=== PATIENT | female | born 1975 | race Hispanic/Latino ===

== ENCOUNTER 2020-03-03 10:17 | Inpatient (IN) | payer SELFPAY ==
[~2020-03-03] VITALS: Ht 157.5 cm; Wt 58.1 kg
[2020-03-03 12:08] LABS: APPEARANCE,URINE Clear (CLEAR); BILIRUBIN,URINE Negative (NEGATIVE); COLOR,URINE Yellow (YELLOW); GLUCOSE, URINE (UA) Negative (NEGATIVE); KETONES,URINE Negative (NEGATIVE); LEUKOCYTE ESTERASE ,URINE Negative (NEGATIVE); NITRATE,URINE Negative (NEGATIVE); OCCULT BLOOD,URINE Negative (NEGATIVE); PROTEIN,URINE Negative (NEGATIVE); UROBILINOGEN,URINE 0.2 mg/dL (0.2-1.0)
[2020-03-03 12:39] LABS: BASOPHILS % (AUTO) 0.5 % (0.0-5.0); EOSINOPHILS % (AUTO) 0.3 % (0.0-8.0); HEMATOCRIT 38.7 % (36-48); LYMPHOCYTES % (AUTO) 22.5 % (21.0-51.0); MEAN CORPUSCULAR HGB CONC 32.8 g/dL (32.0-36.0); MEAN CORPUSCULAR VOLUME 82.3 fL (79-99); NEUTROPHILS % (AUTO) 70.4 % (40.0-77.0); PLATELET COUNT (AUTO) 250 K/uL (130-400); WHITE BLOOD COUNT (AUTO) 6.7 K/uL (4.8-10.8)
[2020-03-03 12:54] LABS: CREATININE 0.6 mg/dL (0.5-1.5); POTASSIUM 4.1 mmol/L (3.5-5.1)
[2020-03-03] MEDS ORDERED: ONDANSETRON HCL 4 MG/2 ML VIAL ONE (12:55)
[2020-03-03] MEDS ORDERED: KETOROLAC TROMETHAMINE 15MG/ML ONE (12:55)
[2020-03-03] MEDS ORDERED: SODIUM CHLORIDE 0.9% 1000ML 1,000 ML IV ONE (12:55)
[2020-03-03] MEDS ORDERED: PROCHLORPERAZINE EDISYLATE 10 MG/2 ML VIAL ONE (12:56)
[2020-03-03 12:59] LABS: ALBUMIN 3.7 g/dL (3.5-5.0); BILIRUBIN,TOTAL 0.4 mg/dL (0.2-1.0); TOTAL PROTEIN, SERUM 7.9 g/dL (6.0-8.3)
[2020-03-03] MEDS ORDERED: TETANUS/DIPHTHERIA TOXOID [ADULT] 0.5 ML VIAL IM ONE (13:02)
[2020-03-03] MEDS ORDERED: LIDOCAINE HCL 1% 20 ML VIAL ONE (14:42)
[2020-03-03 16:04] LABS: GLUCOSE, CSF 45 mg/dL (40-70); TOTAL PROTEIN, CSF 125 mg/dL (15-45)
[2020-03-03 16:20] LABS: CSF TUBE NUMBER TUBE NO.1
[2020-03-03 16:21] LABS: APPEARANCE,CSF CLEAR (CLEAR); COLOR,CSF COLORLESS (COLORLESS); WHITE BLOOD CELL1,CSF 325 CMM (0-5)
[2020-03-03 16:22] LABS: APPEARANCE2,CSF CLEAR (CLEAR); COLOR2,CSF COLORLESS (COLORLESS); CSF 2ND TUBE NUMBER TUBE NO.4; RED BLOOD CELL1,CSF 56 CMM (0-0)
[2020-03-03 16:31] LABS: LYMPHOCYTES1,CSF 74 %; MONOCYTES1,CSF 5 %; NEUTROPHILS1,CSF 21 %
[2020-03-03 16:32] LABS: CSF LYMPHOCYTES2 75 %; MONOCYTES2,CSF 5 %; NEUTROPHILS2,CSF 20 %
[2020-03-03] MEDS ORDERED: ACETAMINOPHEN 325 MG TAB PO PRN ×2 (17:00)
[2020-03-03] MEDS: CEFTRIAXONE SODIUM 1 GM IV SCH (17:00)
[2020-03-03] MEDS ORDERED: LACTULOSE 20 GM/30 ML UDCUP PO PRN (17:00)
[2020-03-03] MEDS: METHYLPREDNISOLONE SOD SUCC 125MG/2ML VIAL IV SCH (17:00)
[2020-03-03] MEDS ORDERED: ONDANSETRON HCL 4 MG/2 ML VIAL IV PRN (17:00)
[2020-03-03] MEDS ORDERED: KETOROLAC TROMETHAMINE 15MG/ML IV PRN (17:15)
[2020-03-03] MEDS: SODIUM CHLORIDE 0.9% 1000ML 1,000 ML IV SCH (17:15)
[2020-03-03] MEDS ORDERED: CEFTRIAXONE SODIUM 2 GM VIAL ONE (17:34)
[2020-03-03] MEDS ORDERED: SODIUM CHLORIDE 0.9% 100 ML IV ONE (17:34)
[2020-03-03] MEDS ORDERED: DEXAMETHASONE SOD PHOSPHATE 10MG/ML 1ML VIAL ONE (17:34)
[2020-03-03] MEDS: FAMOTIDINE 20MG TAB 20 MG TAB PO SCH (21:00)
[2020-03-03] MEDS ORDERED: IOHEXOL-350 75 ML VIAL IV ONE (21:55)
[2020-03-04 00:07] VITALS: BP 106/58
[2020-03-04 04:11] VITALS: BP 109/60
[2020-03-04] MEDS: METHYLPREDNISOLONE SOD SUCC 125MG/2ML VIAL IV SCH ×2 (04:48→15:58)
[2020-03-04] MEDS: SODIUM CHLORIDE 0.9% 1000ML 1,000 ML IV SCH (05:32)
[2020-03-04] MEDS: ACYCLOVIR SODIUM 500 MG VIAL 500 MG in SODIUM CHLORIDE 0.9% 100 ML IV SCH ×3 (06:00→20:49)
[2020-03-04 06:12] LABS: BASOPHILS % (AUTO) 0.4 % (0.0-5.0); HEMATOCRIT 37.4 % (36-48); LYMPHOCYTES % (AUTO) 17.9 % (21.0-51.0); MEAN CORPUSCULAR HEMOGLOBIN 26.7 pg (27.0-33.0); MEAN CORPUSCULAR HGB CONC 32.6 g/dL (32.0-36.0); MEAN CORPUSCULAR VOLUME 81.8 fL (79-99); MONOCYTES % (AUTO) 4.5 % (3.0-13.0); PLATELET COUNT (AUTO) 170 K/uL (130-400); RED BLOOD CELL COUNT(AUTO) 4.57 MIL/uL (4.00-5.50); RED CELL DISTRIBUTION WIDTH 13.7 % (11.0-15.5); WHITE BLOOD COUNT (AUTO) 5.1 K/uL (4.8-10.8)
[2020-03-04 06:54] LABS: CREATININE 0.5 mg/dL (0.5-1.5); POTASSIUM 3.7 mmol/L (3.5-5.1)
[2020-03-04 08:00] VITALS: BP 107/59
--- NOTE | 2020-03-04 08:00 | NUR ---
ASSESSMENT PT IS AAOX3 DENIES CP DENIES SOB DENIES NV. PT DENIES HEADACHES AND DENIES SEEING VISUAL DISTURBANCES. SITTING UPRIGHT IN BED, CALL LIGHT WITHIN REACH.
[2020-03-04] MEDS ORDERED: ACYCLOVIR SODIUM 500 MG VIAL 500 MG in SODIUM CHLORIDE 0.9% 100 ML IV SCH (08:30)
[2020-03-04] MEDS: FAMOTIDINE 20MG TAB 20 MG TAB PO SCH ×2 (08:51→20:49)
[2020-03-04] MEDS: ENOXAPARIN SODIUM 40 MG/0.4 ML SYRINGE SQ SCH (08:52)
--- NOTE | 2020-03-04 11:30 | NUR ---
PLACED PT ON AIRBORNE ISOLATION R/O MENINGITIS PENDING LUMBAR TAP RESULTS, DONE IN ER DAY OF ADMISSION
[2020-03-04 12:00] VITALS: BP 106/59
--- NOTE | 2020-03-04 12:39 | NUR ---
UP TO SHOWER WITH NURSE AIDE ASSIST
--- NOTE | 2020-03-04 15:00 | NUR ---
DR Morgan ROUNDED ORDERS RECEIVED, CONSENT OBTAINED FOR MRA HEAD NECK WITH AND WITHOUT
[2020-03-04] MEDS: CEFTRIAXONE SODIUM 1 GM IV SCH (15:58)
--- NOTE | 2020-03-04 16:22 | NUR ---
INITIAL SW spoke to patient's father, Kyle Peres. Patient lives with her parents. She has no home services or DME. patient is able to complete ADL's independently but does not drive. PCP is Dr. Holden Edmond. Pharmacy is [facility] located in [place]. DCP is home. Patient has no insurance or benefits. SHe is a [place] citizen and has worked in the [place]. SW educated patient's father on [employer] $4 medication program and [facility] $5 medication program. Patient is being assisted by [employer] for financial matters. Addendum: 03/04/20 at 1625 by AMNA DON Amended: Links added.
[2020-03-04] MEDS ORDERED: GADODIAMIDE 10 MMOL/20 ML VIAL IV ONE (17:56)
[2020-03-04] MEDS ORDERED: COMPOUND IV MISC 1 EACH IVSOLN MISC PRN (19:45)
[2020-03-04 21:03] VITALS: BP 110/63
[2020-03-05 00:17] VITALS: BP 117/57
[2020-03-05] MEDS: ACYCLOVIR SODIUM 500 MG VIAL 500 MG in SODIUM CHLORIDE 0.9% 100 ML IV SCH ×3 (03:57→21:36)
[2020-03-05] MEDS: METHYLPREDNISOLONE SOD SUCC 125MG/2ML VIAL IV SCH (03:57)
[2020-03-05 04:20] VITALS: BP 107/57
[2020-03-05 05:56] LABS: BASOPHILS % (AUTO) 0.5 % (0.0-5.0); EOSINOPHILS % (AUTO) 0.6 % (0.0-8.0); HEMATOCRIT 36.2 % (36-48); LYMPHOCYTES % (AUTO) 19.8 % (21.0-51.0); MEAN CORPUSCULAR HGB CONC 32.9 g/dL (32.0-36.0); MEAN CORPUSCULAR VOLUME 82.3 fL (79-99); MONOCYTES % (AUTO) 7.2 % (3.0-13.0); NEUTROPHILS % (AUTO) 71.7 % (40.0-77.0); PLATELET COUNT (AUTO) 228 K/uL (130-400); RED CELL DISTRIBUTION WIDTH 13.7 % (11.0-15.5); WHITE BLOOD COUNT (AUTO) 6.2 K/uL (4.8-10.8)
[2020-03-05 06:27] LABS: CREATININE 0.6 mg/dL (0.5-1.5); POTASSIUM 3.8 mmol/L (3.5-5.1)
[2020-03-05 07:56] VITALS: BP 103/55
--- NOTE | 2020-03-05 08:15 | NUR ---
AM ASSESSMENT PT LAYING IN BED, WATCHING TV. DROPLET ISOLATION. A/O X 3. NO SOB. NO DISTRESS NOTED. KIA HEADACHE AND/OR LIGHT HEADEDNESS. DENIES DIZZINESS. DENIES CHEST PAIN OR DISCOMFORT. DENIES PALPITATIONS. DENIES N/V AND/OR DIARRHEA. UP AD HECTOR. INSTRUCTED TO CALL FOR ASSISTANCE. CALL [facility] W/IN REACH.
[2020-03-05] MEDS: ENOXAPARIN SODIUM 40 MG/0.4 ML SYRINGE SQ SCH (08:19)
[2020-03-05] MEDS: FAMOTIDINE 20MG TAB 20 MG TAB PO SCH ×2 (08:19→21:36)
[2020-03-05 11:00] VITALS: BP 106/61
[2020-03-05 16:00] VITALS: BP 109/62
[2020-03-05] MEDS: CEFTRIAXONE SODIUM 1 GM IV SCH (16:38)
[2020-03-05] MEDS: METHYLPREDNISOLONE SOD SUCC 40MG/ML 1ML IVP SCH (17:03)
--- NOTE | 2020-03-05 17:29 | NUR ---
TRANSFER REPORT GIVEN TO HERB MILLARD. PT TO BE TRANSFERRED TO 331.
--- NOTE | 2020-03-05 17:38 | NUR ---
TRANSFER PT TRANSFERRED TO [facility] 331 VIA WC BY NILS DUTTA.
[2020-03-05 20:04] VITALS: BP 115/65
[2020-03-06 00:05] VITALS: BP 108/63
[2020-03-06 04:00] VITALS: BP 99/61
[2020-03-06 05:07] LABS: BASOPHILS % (AUTO) 0.6 % (0.0-5.0); EOSINOPHILS % (AUTO) 6.9 % (0.0-8.0); LYMPHOCYTES % (AUTO) 26.9 % (21.0-51.0); MEAN CORPUSCULAR HEMOGLOBIN 26.8 pg (27.0-33.0); MEAN CORPUSCULAR HGB CONC 32.8 g/dL (32.0-36.0); MEAN CORPUSCULAR VOLUME 81.6 fL (79-99); MONOCYTES % (AUTO) 8.4 % (3.0-13.0); PLATELET COUNT (AUTO) 237 K/uL (130-400); RED BLOOD CELL COUNT(AUTO) 4.41 MIL/uL (4.00-5.50); RED CELL DISTRIBUTION WIDTH 13.9 % (11.0-15.5); WHITE BLOOD COUNT (AUTO) 6.4 K/uL (4.8-10.8)
[2020-03-06 05:29] LABS: ALBUMIN 3.3 g/dL (3.5-5.0); BILIRUBIN,TOTAL 0.4 mg/dL (0.2-1.0); CREATININE 0.6 mg/dL (0.5-1.5); POTASSIUM 3.6 mmol/L (3.5-5.1); TOTAL PROTEIN, SERUM 7.3 g/dL (6.0-8.3)
[2020-03-06] MEDS: METHYLPREDNISOLONE SOD SUCC 40MG/ML 1ML IVP SCH ×2 (06:01→16:32)
[2020-03-06] MEDS: ACYCLOVIR SODIUM 500 MG VIAL 500 MG in SODIUM CHLORIDE 0.9% 100 ML IV SCH ×3 (07:14→20:38)
[2020-03-06 08:14] VITALS: BP 115/58
[2020-03-06] MEDS: FAMOTIDINE 20MG TAB 20 MG TAB PO SCH ×2 (08:40→20:38)
[2020-03-06] MEDS: ENOXAPARIN SODIUM 40 MG/0.4 ML SYRINGE SQ SCH (08:41)
[2020-03-06 11:07] VITALS: BP 114/76
[2020-03-06 16:26] VITALS: BP 104/63
[2020-03-06] MEDS: CEFTRIAXONE SODIUM 1 GM IV SCH (16:32)
[2020-03-06 20:00] VITALS: BP 111/67
[2020-03-07] VITALS (7 sets, daily range): BP systolic 98–124; BP diastolic 56–69
[2020-03-07 03:47] LABS: BASOPHILS % (AUTO) 0.7 % (0.0-5.0); EOSINOPHILS % (AUTO) 3.4 % (0.0-8.0); HEMATOCRIT 37.3 % (36-48); LYMPHOCYTES % (AUTO) 21.6 % (21.0-51.0); MEAN CORPUSCULAR HGB CONC 32.7 g/dL (32.0-36.0); MEAN CORPUSCULAR VOLUME 82.5 fL (79-99); MONOCYTES % (AUTO) 6.7 % (3.0-13.0); NEUTROPHILS % (AUTO) 67.5 % (40.0-77.0); PLATELET COUNT (AUTO) 261 K/uL (130-400); RED BLOOD CELL COUNT(AUTO) 4.52 MIL/uL (4.00-5.50); WHITE BLOOD COUNT (AUTO) 7.1 K/uL (4.8-10.8)
[2020-03-07 04:04] LABS: ALBUMIN 3.4 g/dL (3.5-5.0); BILIRUBIN,TOTAL 0.3 mg/dL (0.2-1.0); CREATININE 0.6 mg/dL (0.5-1.5); POTASSIUM 3.8 mmol/L (3.5-5.1); TOTAL PROTEIN, SERUM 7.3 g/dL (6.0-8.3)
[2020-03-07] MEDS: METHYLPREDNISOLONE SOD SUCC 40MG/ML 1ML IVP SCH (05:08)
[2020-03-07] MEDS: ACYCLOVIR SODIUM 500 MG VIAL 500 MG in SODIUM CHLORIDE 0.9% 100 ML IV SCH ×3 (05:08→21:14)
[2020-03-07] MEDS: FAMOTIDINE 20MG TAB 20 MG TAB PO SCH ×2 (10:07→21:14)
[2020-03-07] MEDS: ENOXAPARIN SODIUM 40 MG/0.4 ML SYRINGE SQ SCH (10:07)
[2020-03-07 12:11] LABS: HERPES SIMPLEX VIRUS-1 BY PCR Negative (Negative); HERPES SIMPLEX VIRUS-2 BY PCR Negative (Negative)
[2020-03-07] MEDS ORDERED: BUTALB/ACETAMINOPHEN/CAFFEINE 1 EACH TABLET PO PRN (14:15)
[2020-03-07] MEDS: CEFTRIAXONE SODIUM 1 GM IV SCH (17:47)
[2020-03-07] MEDS: PREDNISONE 20 MG TABLET PO SCH (21:14)
[2020-03-08 03:56] VITALS: BP 111/57
[2020-03-08 04:49] LABS: BASOPHILS % (AUTO) 0.6 % (0.0-5.0); HEMATOCRIT 36.5 % (36-48); LYMPHOCYTES % (AUTO) 20.3 % (21.0-51.0); MEAN CORPUSCULAR HEMOGLOBIN 26.9 pg (27.0-33.0); MEAN CORPUSCULAR HGB CONC 33.2 g/dL (32.0-36.0); MEAN CORPUSCULAR VOLUME 81.3 fL (79-99); MONOCYTES % (AUTO) 6.3 % (3.0-13.0); NEUTROPHILS % (AUTO) 72.5 % (40.0-77.0); PLATELET COUNT (AUTO) 237 K/uL (130-400); RED BLOOD CELL COUNT(AUTO) 4.49 MIL/uL (4.00-5.50); WHITE BLOOD COUNT (AUTO) 6.9 K/uL (4.8-10.8)
[2020-03-08 05:04] LABS: CREATININE 0.7 mg/dL (0.5-1.5); POTASSIUM 3.8 mmol/L (3.5-5.1)
[2020-03-08 08:56] VITALS: BP 127/61
[2020-03-08] MEDS: FAMOTIDINE 20MG TAB 20 MG TAB PO SCH (09:45)
[2020-03-08] MEDS: PREDNISONE 20 MG TABLET PO SCH (09:45)
[2020-03-08] MEDS: ENOXAPARIN SODIUM 40 MG/0.4 ML SYRINGE SQ SCH (09:46)
[2020-03-08 13:34] VITALS: BP 103/55
[2020-03-08] MEDS: ACYCLOVIR SODIUM 500 MG VIAL 500 MG in SODIUM CHLORIDE 0.9% 100 ML IV SCH (14:44)
== END 2020-03-08 17:30 | disposition home or self-care (01) | DRG 103 ==
LOC: EDH 10:17 → OBSVTOIN 10:18 → EDHIP 10:18 → 4DH 22:07 → 3AH 03-05 17:38
PROVIDERS: ADMIT Hospitalist; ATTEND Hospitalist
PROC: 009U3ZX Drainage of Spinal Canal, Percutaneous Approach, Diagnostic (ICD-10-PCS; principal; 2020-03-03)
PROC: 3E0234Z Introduction of Serum, Toxoid and Vaccine into Muscle, Percutaneous Approach (ICD-10-PCS; 2020-03-03)
DX: G43.909 Migraine, unspecified, not intractable, without status migrainosus (principal); Z88.0 Allergy status to penicillin; Z23 Encounter for immunization; R11.2 Nausea with vomiting, unspecified
CPT/HCPCS: 36415; 70450; 70496; 70498; 70544; 70549; 80048; 80053; 81003; 81025; 82945; 83690; 84157; 85025; 85651; 86140; 87071; 87147; 87205; 87529; 87798; 89051; 90714; A9579; G0378; J0133; J0696; J0780; J1100; J1650; J1885; J2405; J2920; J2930; J7030; Q9967